=== PATIENT | female | born 1950 | race Caucasian/White ===

== ENCOUNTER 2022-12-05 08:58 | Outpatient (OUT) | payer MEDICARE, BC, SELFPAY ==
--- NOTE | 2022-12-05 | VEIN_ITS ---
Patient: MEAGAN MCCAULEY Exam Date: 12/05/2022 : 1950 Gender:F Ordering : DR CARRINGTON CLEMENT M.D. Admission #: [id number] Family : Order #: [id number] CLICK HERE TO VIEW EXAM RADIOLOGY REPORT PROCEDURE: VC EXT VENOUS REFLUX MAURI LMTD COMPARISON: None. INDICATIONS: Pain due to varicose veins of bilateral legs I83.813 TECHNIQUE: Duplex imaging of the lower extremity to assess the deep and superficial venous system for the presence of deep or superficial venous incompetence and to document the location and severity of disease. The study includes evaluation of the great saphenous vein (GSV), anterior accessory saphenous vein (AASV) and small saphenous vein (SSV). Patient scanned in reverse Trendelenburg and standing. FINDINGS: RIGHT LOWER EXTREMITY: Saphenofemoral Junction Reflux: Yes 9.7mm 1.4 sec GSV: Diam (mm) Reflux/ Time (sec) Proximal Thigh 5.7 Yes 2.1 Mid Thigh 3.3 Yes 1.0 Distal Thigh 3.0 No Prox Calf 2.3 No Mid Calf 1.8 No Saphenopopliteal Junction Reflux: 3.7mm Yes 0.9 SSV: Proximal Calf 1.7 No Mid Calf 1.1 AASV: Proximal Thigh 3.4 No Mid Thigh 2.8 Yes 1.1 Distal Thigh Thrombi: No acute or chronic thrombus visualized Compressibility: Normal Flow: Normal Preforator: Dist/med calf 2.3mm with 0s reflux. Dist/med calf 3.1mm with 0s reflux. Tech Note: Incompetent SFJ and GSV. Hypoechoic avascular structure pop fossa that measures 5.5 x 2.8 x 1.0 cm. Patent varicose vein dist/med calf 1.8mm with 0s reflux. Patent varicose vein dist/med thigh 2.1mm with 0.9s reflux. Patent varicose vein medial knee 2.2mm with 0.5s reflux. LEFT LOWER EXTREMITY: Saphenofemoral Junction Reflux: Yes 8.0 mm 2.0 sec GSV: Diam (mm) Reflux/Time (sec) Proximal Thigh 5.8 Yes 1.0 Mid Thigh 2.6 No Distal Thigh 3.2 No Prox Calf 1.7 Yes 0.7 Mid Calf 1.9 Yes 1.2 Saphenopopliteal Junction Relux: 6.1 mm Yes 1.7 SSV: Proximal Calf 6.0 Yes 0.7 Mid Calf 2.8 No AASV: Proximal Thigh 2.9 No Mid Thigh 2.3 No Distal Thigh Thrombi: No acute or chronic thrombus visualized Compressibility: Normal Flow: Normal Senior Associate: Dist/med calf 2.5mm with 0s reflux. Tech Note: Incompetent SFJ, GSV, SPJ, and SSV. GSV becomes extrafascial at mid thigh. Hypoechoic avascular structure pop fossa that measures 6.0 x 2.3 x 1.0 cm. Patent varicose vein prox/med calf 2.0mm with 0.8s reflux. CONCLUSION: 1. Mild bilateral great saphenous vein venous insufficiency with associated dilatation 2. Mild right saphenopopliteal junction reflux without dilatation 3. Mild left small saphenous vein venous insufficiency with borderline dilatation 4. Mild venous insufficiency right anterior accessory saphenous vein without dilatation Dictated by: Carrington Clement MD on 12/05/2022 at 09:58 Approved by: Carrington Clement MD on 12/05/2022 at 10:00
--- NOTE | 2022-12-05 | VEIN_ITS ---
Patient: MEAGAN MCCAULEY Exam Date: 12/05/2022 : 1950 Gender:F Ordering : DR CARRINGTON CLEMENT M.D. Admission #: [id number] Family : Order #: [id number] CLICK HERE TO VIEW EXAM RADIOLOGY REPORT PROCEDURE: FACILITY [facility] - OFFICE VISIT INITIAL COMPARISON: None. PROGRESS NOTES: 9-year-old female who presents with a 20 year history of lower extremity pain swelling and varicose veins. The patient complains bilaterally symmetric leg pain, minimally worse on the left, leg swelling and cramping. The patient describes pain as aching, heaviness and dull rating the pain as a 3 on a scale of 1-10. 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 The patient's symptoms are partially relieved by rest, leg elevation, though over the counter oral analgesics and compression stockings. Risk factors include significant varicose veins in both parents. The patient denies any signs and symptoms to suggest arterial ischemia. The patient describes a family history of varicose veins in both parents. Aortic aneurysm in her mother. Colon cancer in her father. . Social only alcohol use. No illicit drug use. The patient has never smoked. Past medical history significant for endometriosis in 2 C-sections. The patient does regularly exercise with walking biking and yoga daily. Patient does have restless leg syndrome. No history of deep venous thrombus or pulmonary embolus. See separate history and physical for medication list. No prior treatment for varicose or spider veins. Long-term use of compression stockings for over 5 years. Nursing notes were reviewed. After history and physical exam I discussed at length the pathophysiology of venous hypertension and possible treatments, therapies and strategies available. We discussed at length the importance of elevating the lower extremities above the level of the heart, increased physical activity and compression stocking use. We discussed conservative therapy with continued use of bilateral thigh-high or knee high compression stockings. We discussed surgical interventions including ligation, stripping and phlebectomy. We discussed intravenous laser ablation, micro foam chemical ablation and injection sclerotherapy at length. The patient's questions were answered. Risks benefits and alternatives were provided. I did discuss with the patient that her symptoms could possibly be related but not definitively related to her mild to moderate vein disease. Ultrasound venous reflux study performed the same day was discussed at length with the patient. The report demonstrates mild to moderate bilateral great saphenous vein venous insufficiency with saphenofemoral junction reflux and dilatation. Mild bilateral saphenous popliteal junction reflux. Mild reflux right anterior accessory saphenous vein. Bilateral popliteal cysts. No deep vein reflux. PHYSICAL EXAM: The right leg demonstrates moderate scattered varicose, reticular and spider veins. No active ulceration , hemosiderin staining or subcutaneous edema. No erythema or warmth to suggest cellulitis. The left leg demonstrates moderate scattered varicose, reticular and spider veins. No active ulceration , hemosiderin staining or subcutaneous edema. No erythema or warmth to suggest cellulitis. Both thighs, legs and feet were symmetrically warm to the touch. Good posterior tibial and dorsalis pedis pulses were present bilaterally. VEIN/VC Facility EST Comprehensive IMPRESSION: 1. Mild bilateral great saphenous vein venous insufficiency 2. No significant lower extremity varicose veins 3. No significant lower extremity subcutaneous edema 4. No significant flow significant arterial disease 5. CEAP: C2, Ep, As, Pr PLAN: 1. Endovenous laser ablation left great saphenous vein 2. Injection sclerotherapy bilateral reticular and spider veins 3. Long-term use of bilateral knee or thigh-high 20-30 mm compression stockings 4. Continued Elevated legs and increased physical activity for symptomatic relief Nurse notes, history and physical were reviewed and confirmed, see attached forms. The nurse was present throughout the physical exam and consultation Dictated by: Carrington Clement MD on 12/05/2022 at 14:31 Approved by: Carrington Clement MD on 12/05/2022 at 14:37
== END 2022-12-05 08:59 | disposition home or self-care (01) ==
PROVIDERS: PCP Radiology Diagnostic Radiology; Visit Provider Radiology Diagnostic Radiology
DX: I83.813 Varicose veins of bilateral lower extremities with pain (principal)
CPT/HCPCS: 93970; G0463

== ENCOUNTER 2022-12-26 07:27 | Outpatient (OUT) | payer MEDICARE, BC, SELFPAY ==
--- NOTE | 2022-12-26 07:32 | VEIN_ITS ---
[address] [address] Patient Name: MEAGAN MCCAULEY MRN: [id number] date: 1950 Sex: F Assigned Patient Location: Current Patient Location: Accession/Order Number: [id number] Exam Date: 12/26/2022 07:32 Report Date: 12/26/2022 08:51 At the request of: AYLIN CARLSON Procedure: VC Endovenous Ablation 1VeinLT EXAMINATION: VC Endovenous Ablation 1VeinLT HISTORY: Pain due to varicose veins of bilateral legs I83.813 The risks and benefits of the procedure had been previously discussed, and were rediscussed at length. Informed written consent was obtained. Nakita Donaldson RN and Devora Peguero RDMS, RVT assisted. Time out procedure was performed. The left lower extremity was prepared and draped in the usual sterile fashion to allow knee flexion in the sterile field. Duplex ultrasound probe was draped in a sterile cover, sterile transmission gel was used. Venous mapping was performed with the areas of dilation and large tributaries marked. The total length was 13 cm from the entry middistal thigh to 3 cm below the Saphenofemoral junction. The diameter of the greater saphenous vein ranged from 5.8 mm. A 30 gauge needle and 1% buffered lidocaine was used to anesthetize the entry site. A 4 mm incision was made with a scalpel and the saphenous vein was entered percutaneously under direct ultrasound guidance with a micropuncture set, a single stick was successful in gaining access. A micro-guide wire was inserted and the needle removed. A micro-set including a dilator was inserted over the microwire and the needle and dilator were removed. A guide wire was inserted through the micro-set and guided through the saphenous vein to the saphenofemoral junction. The dilator was removed and an introducer sheath was inserted over the wire until the end of the sheath entered the saphenofemoral junction. The dilator and wire were removed and the 600 micron fiber was introduced and placed and positioned so that it extended beyond the sheath and was 3 cm distal to the saphenofemoral or saphenopopliteal junction. Final position of the fiber was determined by ultrasound guidance and duplex imaging. Tumescent anesthetic was delivered by ultrasound guidance. 100 cc of fluid was delivered along the entire course of the saphenous vein. The solution consisted of 1000 cc of normal saline with 40 mL of 1% lidocaine and 20 mL of sodium bicarbonate. A final positioning check was made. The energy source was turned on by means of the foot pedal and the fiber and sheath were withdrawn. The total number of Joules delivered was 637. The laser was active for 80 seconds under continuous pulse, average laser use of 8 J. Laser start time 8:13 AM, 12/26/2022. Laser stop time 8:14 AM, 12/26/2022. A duplex ultrasound revealed compressibility and flow at the saphenofemoral junction immediately after the procedure. Hemostasis at the access site was achieved. The skin incision of the saphenous vein was closed with a 4 x 4. A compression stocking was applied. Postop instructions were given. A follow up appointment was recommended and scheduled. The patient tolerated the procedure well. Electronically authenticated by: SOPHIA LIM Date: 12/26/2022 08:51
[2022-12-26] MEDS: LIDOCAINE HCL 10 ML, SODIUM BICARBONATE 1 MEQ INJ (08:41)
[2022-12-26] MEDS: 0.9 % SODIUM CHLORIDE 500 ML, LIDOCAINE HCL 20 ML, SODIUM BICARBONATE 10 MEQ INJ (08:42)
== END 2022-12-26 07:28 | disposition home or self-care (01) ==
LOC: VC 07:27
PROVIDERS: PCP Radiology Diagnostic Radiology; Visit Provider Radiology Diagnostic Radiology
DX: I83.813 Varicose veins of bilateral lower extremities with pain (principal)
CPT/HCPCS: 36478

== ENCOUNTER 2022-12-31 07:30 | Outpatient (OUT) | payer MEDICARE, BC, SELFPAY ==
--- NOTE | 2022-12-31 07:32 | VEIN_ITS ---
Patient: MEAGAN MCCAULEY Exam Date: 12/31/2022 : 1950 Gender:F Ordering : DR AYLIN CARLSON M.D. Admission #: [id number] Family : Order #: [id number] CLICK HERE TO VIEW EXAM RADIOLOGY REPORT PROCEDURE: VC EXT VENOUS LT LIMITED COMPARISON: None. INDICATIONS: I80.02 Phlebitis of superficial veins of lt lower extremity TECHNIQUE: Lower extremity avendano scale and Duplex Doppler evaluation of the deep venous system from the inguinal ligament through the calf veins. FINDINGS: REGION: Left lower extremity. THROMBI: Negative for DVT. Heat induced thrombus visualized 1.1 cm from the SFJ. The heat induced thrombus extends from groin to mid thigh. COMPRESSIBILITY: Non-compressible segments. FLOW: Areas of no flow. OTHER: CONCLUSION: 1. Successful post ablation occlusion of left great saphenous vein. Dictated by: Walt Cristina M.D. on 12/31/2022 at 11:31 Approved by: Walt Cristina M.D. on 12/31/2022 at 11:32
--- NOTE | 2022-12-31 07:32 | VEIN_ITS ---
Patient: MEAGAN MCCAULEY Exam Date: 12/31/2022 : 1950 Gender:F Ordering : DR AYLIN CARLSON M.D. Admission #: [id number] Family : Order #: [id number] CLICK HERE TO VIEW EXAM RADIOLOGY REPORT PROCEDURE: FACILITY EST LMTD VEIN CENTER - OFFICE VISIT FOLLOW UP COMPARISON: None. PROGRESS NOTES: The patient reports improvement in leg symptoms. There has been interval reduction in varicosities. The patient has followed our recommendations to walk 20-30 minutes once or twice per day since the procedure. Physical exam demonstrates decrease in varicosities of the leg. Persistent reticular veins and spider veins are identified along the legs bilaterally. Review of the ultrasound performed the same day demonstrates occlusive thrombus extending throughout the treated vein(s), see separate report, consistent with a successful ablation. No thrombus extending into or beyond the saphenofemoral junction. The patient expressed a desire to proceed with treatment of reticular veins and spider veins. The patient was informed that treatment was a process and would require 2-3 procedures/sessions per leg. VEIN/ Facility EST LMTD IMPRESSION: 1. Successful ablation of the left great saphenous vein(s). 2. Persistent reticular and spider veins. PLAN: Sclerotherapy of bilateral lower extremity extensive reticular and spider veins. Nurse notes, history and physical were reviewed and confirmed, see attached forms. The nurse was present throughout the physical exam and consultation Dictated by: Walt Cristina M.D. on 12/31/2022 at 11:32 Approved by: Walt Cristina M.D. on 12/31/2022 at 11:33
== END 2022-12-31 07:31 | disposition home or self-care (01) ==
LOC: VC 07:31
PROVIDERS: PCP Radiology Diagnostic Radiology; Visit Provider Radiology Diagnostic Radiology
DX: I80.02 Phlebitis and thrombophlebitis of superficial vessels of left lower extremity (principal)
CPT/HCPCS: 93971; G0463

== ENCOUNTER 2023-01-07 07:27 | Outpatient (OUT) | payer MEDICARE, BC, SELFPAY ==
--- NOTE | 2023-01-07 | VEIN_ITS ---
[address] [address] Patient Name: MEAGAN MCCAULEY MRN: [id number] date: 1950 Sex: F Assigned Patient Location: Current Patient Location: Accession/Order Number: [id number] Exam Date: 01/07/2023 07:30 Report Date: 01/07/2023 11:24 At the request of: AYLIN CARLSON Procedure: VC INJ Sclerosing SOLMULT Vein EXAMINATION: VC INJ Sclerosing SOLMULT Vein HISTORY: Pain due to varicose veins of bilateral legs I83.813 The risks and benefits of the procedure were explained at length to the patient and informed written consent was obtained. The procedure was performed under sterile technique. The patient's leg was wrapped with Coban and postprocedural verbal and written instructions provided. Israel Shields RN was present and assisted. SCLEROSANT: 2mL 0.5% Polidocanol. VEIN(S) INJECTED: 26 veins in the left leg. VISUALIZATION: Ultrasound was not used to visualize the sclerosant. ANESTHESIA: Supercooled air. COMPLICATIONS: None. Electronically authenticated by: SOPHIA LIM Date: 01/07/2023 11:24
== END 2023-01-07 07:28 | disposition home or self-care (01) ==
LOC: VC 07:27
PROVIDERS: PCP Radiology Diagnostic Radiology; Visit Provider Radiology Diagnostic Radiology
DX: I83.813 Varicose veins of bilateral lower extremities with pain (principal)
CPT/HCPCS: 36471

== ENCOUNTER 2023-01-23 08:02 | Outpatient (OUT) | payer MEDICARE, BC, SELFPAY ==
--- NOTE | 2023-01-23 | VEIN_ITS ---
[address] [address] Patient Name: MEAGAN MCCAULEY MRN: [id number] date: 1950 Sex: F Assigned Patient Location: Current Patient Location: Accession/Order Number: [id number] Exam Date: 01/23/2023 08:10 Report Date: 01/23/2023 08:49 At the request of: AYLIN CARLSON Procedure: VC INJ Sclerosing SOLMULT Vein EXAMINATION: VC INJ Sclerosing SOLMULT Vein HISTORY: I83.813 painful varicose veins COMPARISON: No relevant comparison available. TECHNIQUE: The risks and benefits of the procedure were explained at length to the patient and informed written consent was obtained. Israel Shields was present and assisted. The procedure was performed under sterile technique. The patient's leg was wrapped with Coban and postprocedural verbal and written instructions provided. SCLEROSANT: 4 cc, 0.5% polidocanol VEIN(S) INJECTED: 29 veins in the right leg VISUALIZATION: Ultrasound was not used to visualize the sclerosant ANESTHESIA: Supercooled air COMPLICATIONS: None VEIN/VC INJ Sclerosing SOLMULT Vein IMPRESSION: Technically successful sclerotherapy as described Electronically authenticated by: AYLIN CARLSON Date: 01/23/2023 08:49
== END 2023-01-23 08:03 | disposition home or self-care (01) ==
LOC: VC 08:02
PROVIDERS: PCP Radiology Diagnostic Radiology; Visit Provider Radiology Diagnostic Radiology
DX: I83.813 Varicose veins of bilateral lower extremities with pain (principal)
CPT/HCPCS: 36471

== ENCOUNTER 2023-02-06 07:30 | Outpatient (OUT) | payer MEDICARE, BC, SELFPAY ==
--- NOTE | 2023-02-06 07:32 | VEIN_ITS ---
[address] [address] Patient Name: MEAGAN MCCAULEY MRN: [id number] date: 1950 Sex: F Assigned Patient Location: Current Patient Location: Accession/Order Number: [id number] Exam Date: 02/06/2023 07:33 Report Date: 02/06/2023 08:45 At the request of: AYLIN CARLSON Procedure: VC INJ Sclerosing SOLMULT Vein EXAMINATION: VC INJ Sclerosing SOLMULT Vein HISTORY: Pain due to varicose veins of bilateral legs I83.813 The risks and benefits of the procedure were explained at length to the patient and informed written consent was obtained. The procedure was performed under sterile technique. The patient's leg was wrapped with Coban and postprocedural verbal and written instructions provided. Israel Shields RN was present and assisted. SCLEROSANT: 2mL 0.5% Polidocanol. VEIN(S) INJECTED: 26 veins in the left leg. VISUALIZATION: Ultrasound was not used to visualize the sclerosant. ANESTHESIA: Supercooled air. COMPLICATIONS: None. Electronically authenticated by: SOPHIA LIM Date: 02/06/2023 08:45
== END 2023-02-06 07:31 | disposition home or self-care (01) ==
LOC: VC 07:31
PROVIDERS: PCP Radiology Diagnostic Radiology; Visit Provider Radiology Diagnostic Radiology
DX: I83.813 Varicose veins of bilateral lower extremities with pain (principal)
CPT/HCPCS: 36471

== ENCOUNTER 2023-02-20 07:30 | Outpatient (OUT) | payer MEDICARE, BC, SELFPAY ==
--- NOTE | 2023-02-20 07:36 | VEIN_ITS ---
[address] [address] Patient Name: MEAGAN MCCAULEY MRN: [id number] date: 1950 Sex: F Assigned Patient Location: VC Current Patient Location: VC Accession/Order Number: [id number] Exam Date: 02/20/2023 07:36 Report Date: 02/20/2023 09:47 At the request of: AYLIN CARLSON Procedure: VC INJ Sclerosing SOLMULT Vein EXAMINATION: VC INJ Sclerosing SOLMULT Vein HISTORY: I83.813 Painful varicose veins of bilat lower extremities COMPARISON: No relevant comparison available. TECHNIQUE: The risks and benefits of the procedure were explained at length to the patient and informed written consent was obtained. Israel Shields was present and assisted. The procedure was performed under sterile technique. The patient's leg was wrapped with Coban and postprocedural verbal and written instructions provided. SCLEROSANT: 4 cc, 0.5% polidocanol VEIN(S) INJECTED: 22 veins in the left leg VISUALIZATION: Ultrasound was not used to visualize the sclerosant ANESTHESIA: Supercooled air COMPLICATIONS: None VEIN/VC INJ Sclerosing SOLMULT Vein IMPRESSION: Technically successful sclerotherapy as described Electronically authenticated by: AYLIN CARLSON Date: 02/20/2023 09:47
== END 2023-02-20 07:31 | disposition home or self-care (01) ==
LOC: VC 07:30
PROVIDERS: PCP Radiology Diagnostic Radiology; Visit Provider Radiology Diagnostic Radiology
DX: I83.813 Varicose veins of bilateral lower extremities with pain (principal)
CPT/HCPCS: 36471

== ENCOUNTER 2023-04-22 14:21 | Outpatient (OUT) | payer MEDICARE, BC, SELFPAY ==
--- NOTE | 2023-04-22 | XR_ITS ---
The [address] [address] Patient Name: MEAGAN MCCAULEY MRN: [id number] date: 1950 Sex: F Assigned Patient Location: [facility] Current Patient Location: Accession/Order Number: [id number] Exam Date: 04/22/2023 14:30 Report Date: 04/23/2023 02:01 At the request of: ANIKA GARCIA Procedure: XR foot MAURI min 3V PROCEDURE: XR foot MAURI min 3V HISTORY: BILATERAL FOOT PAIN COMPARISON: None. FINDINGS: BONES:Right foot bunion formation. Small calcaneal plantar spur, right greater than left. Slightly exaggerated right plantar arch. SOFT TISSUES:No visible soft tissue swelling. EFFUSION:None visible. OTHER: Negative. XR/XR foot MAURI min 3V IMPRESSION: 1. Moderate bunion formation involving the right foot. 2. No acute or significant degenerative changes of the left foot. Electronically authenticated by: SOPHIA LIM Date: 04/23/2023 02:01
== END 2023-04-22 14:22 | disposition home or self-care (01) ==
LOC: RAD 14:21
PROVIDERS: Visit Provider Podiatrist Foot & Ankle Surgery
DX: M79.672 Pain in left foot (principal); M79.671 Pain in right foot; M21.612 Bunion of left foot
CPT/HCPCS: 73630